=== PATIENT | male | born 1985 | race Caucasian/White ===

== ENCOUNTER 2016-11-08 10:29 | Emergency (ER) | payer SELFPAY ==
[2016-11-08] MEDS ORDERED: Ondansetron ODT 4 MG TAB ONE (10:37)
--- NOTE | 2016-11-08 11:03 | ERRECORD ---
[facility] EMERGENCY RECORD HPI NAUSEA/VOMITING/DIARRHEA (10:37 [facility]) CHIEF COMPLAINT: Patient presents for evaluation of nausea, Patient presents for evaluation of vomiting. HISTORIAN: History provided by patient, 31M presents complaining of nausea and vomiting that began last night after he consumed a large amount of alcohol. Reports cramping generalized abdominal pain. Denies change in urinary or bowel habits. Denies other complaints. LOCATION MALE: Symptoms are generalized. QUALITY: Pain is dull in nature, described as cramping. TIME COURSE: Gradual onset of symptoms, There has been no change in the patient's symptoms over time. ASSOCIATED WITH MALE: Associated with nausea, Associated with vomiting. EXACERBATED BY: Patient's condition exacerbated by food. ROS (10:38 [facility]) CONSTITUTIONAL: Negative constitutional review of systems, Historian denies chills, denies fever. EYES: Negative eye review of systems, Historian denies eye pain, denies eye discharge, denies vision changes. ENT: Negative ears, nose, throat review of systems, Historian denies rhinorrhea, denies sore throat. CARDIOVASCULAR: Negative cardiovascular review of systems, Historian denies chest pain, denies palpitations. RESPIRATORY: Negative respiratory review of systems, Historian denies cough, denies shortness of breath. GI: Historian reports nausea, reports vomiting. GENITOURINARY MALE: Negative genitourinary review of systems, Historian denies dysuria, denies hematuria. MUSCULOSKELETAL: Negative musculoskeletal review of systems, Historian denies back pain, denies fall, denies injury, denies neck pain. SKIN: Negative skin review of systems, Historian denies rash, denies skin changes. NEUROLOGIC: Negative neurologic review of systems, Historian denies headache. HEMO/LYMPHATIC: Normal hematologic/lymphatic system review, Historian denies abnormal blood clotting. PAST MEDICAL HISTORY (10:35 [facility]) MEDICAL HISTORY: Flu vaccine not up to date, Tetanus not up to date, No past medical history,. MALE SURGICAL HISTORY: Surgical history of craniotomy, Date of surgery 2010, Surgical history of orthopedic surgery, right femur, knee, Date of surgery 2010. SOCIAL HISTORY: Patient drinks every day, less than 5 drinks per day, Patient denies drug use, Patient currently uses tobacco, smokes cigarettes, daily, Patient &a-1R&a+25V*p+0X*r9334C*c202B*c15G*c2P*p-0X&a-25V&a+1R Name: Naveed Gomez : 1985 M31 MedRec: [id number] AcctNum: [id number] Prepared: Jia Nov 08, 2016 11:00 by Interface Page 1 of 3 pMD [facility] EMERGENCY RECORD smokes 1 pack per day. KNOWN ALLERGIES No Known Drug Allergies No Known Drug Allergy (Unconfirmed) CURRENT MEDICATIONS (10:33 [facility]) None VITAL SIGNS VITAL SIGNS: Pulse: 60, Resp: 18, Temp: 98.1 (Oral), Pain: 0, O2 sat: 98 on Room Air, Time: 11/08/2016 10:32. (10:32 KMOR) BP: 163/77, Time: 11/08/2016 10:34. (10:34 KM[facility]) PHYSICAL EXAM (10:38 [facility]) CONSTITUTIONAL: Vital signs reviewed, Patient afebrile, Pulse normal, Blood pressure normal, Respiratory rate normal, Patient appears non toxic, Patient appears pain free, Patient alert and oriented to person, place and time. HEAD: Head exam normal, Head exam included findings of head atraumatic, normocephalic. EYES: Eye exam normal, Eye exam included findings of eyelids normal to inspection, Pupils equally round and reactive to light, Extraocular muscles intact, no nystagmus. ENT: ENT exam normal, Ear exam normal, external ear normal, tympanic membranes normal, no bleeding, Pharynx exam normal, Uvula exam normal, Tonsil exam normal, Mouth exam normal, mucous membranes moist, teeth normal. NECK: Neck exam normal, Neck exam included findings of normal range of motion, Trachea midline, no meningeal signs, no cervical adenopathy, no tenderness. RESPIRATORY CHEST: Respiratory and chest exam normal, Respiratory exam included findings of no respiratory distress, Breath sounds clear. CARDIOVASCULAR: Cardiovascular assessment normal, Cardiovascular exam included findings of heart rate regular rate and rhythm, Heart sounds normal. ABDOMEN MALE: Abdominal exam included findings of abdomen nontender, Bowel sounds normal, no distension, no mass, no pulsatile masses, no peritoneal signs, no rigidity, no guarding, no rebound, Rovsing's sign absent. BACK: Back exam normal, Back exam included findings of normal inspection, range of motion normal, no tenderness. UPPER EXTREMITY: Upper extremity exam normal, Upper extremity exam included findings of inspection normal, Range of motion normal, Motor strength normal, Sensation intact, Radial pulse normal. LOWER EXTREMITY: Lower extremity exam normal, Lower extremity exam included findings of inspection normal, Range of motion normal, Motor strength normal, Sensation intact, Posterior tibial pulse normal, Pedal pulse normal. &a-1R&a+25V*p+0X*x2171F*c202B*c15G*c2P*p-0X&a-25V&a+1R Name: Naveed Gomez : 1985 M31 MedRec: [id number] AcctNum: [id number] Prepared: Jia Nov 08, 2016 11:00 by Interface Page 2 of 3 pMD [facility] EMERGENCY RECORD NEURO: Neuro exam normal, Neuro exam findings include patient oriented to person, place and time, Speech normal, Gait normal. SKIN: Skin exam normal, Skin exam included findings of skin warm, dry, and normal in color, no rash. PSYCHIATRIC: Psychiatric exam normal, Normal affect. MEDICATION ADMINISTRATION SUMMARY Drug Name: Zofran ODT, Dose Ordered: 4 mg, Route: Oral, Status: Given, Time: 10:38 11/08/2016, Detailed record available in Medication Service section. DOCTOR NOTES (10:39 JJA) TEXT: Patient presented with signs and symptoms consistent with alcohol induced gastritis and emesis. Vital signs and physical exam unremarkable, and my suspicion for more serious conditions like pancreatitis, obstruction, or cholecystitis are low. I do not believe he needs further workup or other investigation in the emergency department at this time and is appropriate for discharge home. PATIENT STATUS: Patient has improved since arrival to emergency department. PATIENT PLAN: The patient will be discharged, The patient will follow up with primary care physician. PROBLEM LIST No recorded problems DIAGNOSIS (10:50 [facility]) FINAL: PRIMARY: ALCOHOLIC GASTRITIS W/O BLEEDING. PRESCRIPTION (10:50 [facility]) Zofran ODT: TABLET, RAPID DISSOLVE : 4 mg : ORAL : Quantity: 4 Unit: mg Route: ORAL Schedule: every 8 hours PRN Dispense: 5 May substitute. Refills: No Refills . NOTES: Take as needed for nausea or vomiting. One refill authorized No refills. DISPOSITION (10:50 [facility]) PATIENT: Disposition Type: Discharge, Disposition: *Discharge Home. Franz: CHARI=MD Radha, Brain KMOR=MELLISSA Haque, Sindy &a-1R&a+25V*p+0X*k0407D*c202B*c15G*c2P*p-0X&a-25V&a+1R Name: Naveed Gomez : 1985 M31 MedRec: [id number] AcctNum: [id number] Prepared: Jia Nov 08, 2016 11:00 by Interface Page 3 of 3 pMD MTDD
--- NOTE | 2016-11-08 11:19 | PICIS ---
[facility] EMERGENCY RECORD TRIAGE (WedNov 08, 2016 10:33 KM[facility]) TRIAGE NOTES: Drinking last night, vomiting today. (WedNov 08, 2016 10:33 KMOR) PATIENT: NAME: Naveed Gomez, AGE: 31, GENDER: male, : [facility] 1985, TIME OF GREET: WedNov 08, 2016 10:30, PREFERRED LANGUAGE: Mongolian, ETHNICITY: Not or , ECODE BILLING MAP: [facility], SSN: [id number], Zip Code: [address], KG WEIGHT: 63.50, , , PERSON ID: [id number], PAYMENT: [employer] Self Pay, PCP: DO LEVI JOHN SCOTT. (WedNov 08, 2016 10:33 KMOR) PHONE: . (10:45) COMPLAINT: Vomiting Alone. (WedNov 08, 2016 10:33 KMOR) ADMISSION: URGENCY: 4 Non Urgent, ADMISSION SOURCE: Home, TRANSPORT: CAR, BED: ER -02. (WedNov 08, 2016 10:33 KMOR) ASSESSMENT: Assessment: A&OX4. RR EVEN AND UNLABORED., Symptoms began yesterday. (10:35 KMOR) PAIN: No complaint of pain. (10:35 KM[facility]) IMMUNIZATIONS: Flu vaccine not up to date, Tetanus not up to date. (10:35 KM[facility]) SIRS SCORING: Heart Rate 55-109 (0), Temp range 96.8-101.1 (0), respiratory rate 12-24 (0), Mental Status altered: no (0), Infection or Suspected Infection: No. (10:35 KM[facility]) TRIAGE SCREENING: Patient denies suicidal ideation, Patient denies presence of domestic violence. (10:35 KM[facility]) PROVIDERS: TRIAGE NURSE: iSndy Haque RN. (WedNov 08, 2016 10:33 KM[facility]) VITAL SIGNS: Pulse 60, Resp 18, Temp 98.1, (Oral), Pain 0, O2 Sat 98, on Room Air, Time 11/08/2016 10:32. (10:32 KMOR) BP 163/77, Time 11/08/2016 10:34. (10:34 KMOR) KNOWN ALLERGIES No Known Drug Allergies No Known Drug Allergy (Unconfirmed) CURRENT MEDICATIONS (10:33 KMOR) None VITAL SIGNS VITAL SIGNS: Pulse: 60, Resp: 18, Temp: 98.1 (Oral), Pain: 0, O2 sat: 98 on Room Air, Time: 11/08/2016 10:32. (10:32 KMOR) BP: 163/77, Time: 11/08/2016 10:34. (10:34 KMOR) NURSING ASSESSMENT: ABDOMEN (10:38 K[facility]) CONSTITUTIONAL: Patient arrives ambulatory, Gait steady, History obtained from patient, Patient appears, uncomfortable, Patient cooperative, Patient alert, Oriented to person, place and time, Skin warm, Skin dry, Skin normal in color, Mucous membranes pink, Mucous membranes, tacky, Patient is well-groomed, Patient complains of Vomiting, Reports drinking last night, vomiting started today. Reports headache. &a-1R&a+25V*p+0X*g3862O*c202B*c15G*c2P*p-0X&a-25V&a+1R Name: Naveed Gomez : 1985 M31 MedRec: [id number] AcctNum: [id number] Prepared: Jia Nov 08, 2016 11:13 by Interface Page 1 of 5 pMD [facility] EMERGENCY RECORD PAIN: Patient rates pain as 0 out of 10. ABDOMEN: Abdomen assessment findings include abdomen symmetrical, Abdomen soft, Bowel sound normal, Associated with nausea, Associated with vomiting, history of vomiting, having bilious emesis, no associated diarrhea, no associated weight change, Associated with appetite change, decrease. GENITOURINARY MALE: no associated urinary complaints. NOTES: Patient tolerated procedure well. NURSING PROCEDURE: DISCHARGE NOTE (11:03 KM[facility]) DISCHARGE: Patient discharged to home, ambulating without assistance, family driving, accompanied by //partner, Summary of Care printed/ provided, Transition record given to patient, Discharge instructions given to patient, Simple or moderate discharge teaching performed, by MELLISSA Callahan, Discharge instructions and follow up reviewed with patient. Pt ambulatory to discharge desk., Prescriptions given and instructions on side effects given, Name of prescription(s) given: Aide mendes person(s) verbalized understanding of discharge instructions and follow-up care. BELONGINGS: Belongings remain with patient, Valuables remain with patient. MEDICATION ADMINISTRATION SUMMARY Drug Name: Zofran ODT, Dose Ordered: 4 mg, Route: Oral, Status: Given, Time: 10:38 11/08/2016, Detailed record available in Medication Service section. MEDICATION SERVICE Zofran ODT: Order: Zofran ODT (ondansetron) - Dose: 4 mg : Oral Ordered by: Brain Garcia MD Entered by: MD Jia Caban Nov 08, 2016 10:36 Documented as given by: MELLISSA Courtney Nov 08, 2016 10:38 Patient, Medication, Dose, Route and Time verified prior to administration. Amount given: 4mg, Site: Medication administered S.L., Correct patient, time, route, dose and medication confirmed prior to administration, Patient advised of actions and side-effects prior to administration, Allergies confirmed and medications reviewed prior to administration, Patient in position of comfort, Side rails up, Cart in lowest position, Family at bedside. : Follow Up : Response assessment performed, No signs or symptoms of allergic reaction noted. (11:04 KM[facility]) HPI NAUSEA/VOMITING/DIARRHEA (10:37 [facility]) CHIEF COMPLAINT: Patient presents for evaluation of nausea, Patient presents for evaluation of vomiting. &a-1R&a+25V*p+0X*s4340Q*c202B*c15G*c2P*p-0X&a-25V&a+1R Name: Naveed Gomez : 1985 M31 MedRec: [id number] AcctNum: [id number] Prepared: Jia Nov 08, 2016 11:13 by Interface Page 2 of 5 pMD [facility] EMERGENCY RECORD HISTORIAN: History provided by patient, 31M presents complaining of nausea and vomiting that began last night after he consumed a large amount of alcohol. Reports cramping generalized abdominal pain. Denies change in urinary or bowel habits. Denies other complaints. LOCATION MALE: Symptoms are generalized. QUALITY: Pain is dull in nature, described as cramping. TIME COURSE: Gradual onset of symptoms, There has been no change in the patient's symptoms over time. ASSOCIATED WITH MALE: Associated with nausea, Associated with vomiting. EXACERBATED BY: Patient's condition exacerbated by food. ROS (10:38 [facility]) CONSTITUTIONAL: Negative constitutional review of systems, Historian denies chills, denies fever. EYES: Negative eye review of systems, Historian denies eye pain, denies eye discharge, denies vision changes. ENT: Negative ears, nose, throat review of systems, Historian denies rhinorrhea, denies sore throat. CARDIOVASCULAR: Negative cardiovascular review of systems, Historian denies chest pain, denies palpitations. RESPIRATORY: Negative respiratory review of systems, Historian denies cough, denies shortness of breath. GI: Historian reports nausea, reports vomiting. GENITOURINARY MALE: Negative genitourinary review of systems, Historian denies dysuria, denies hematuria. MUSCULOSKELETAL: Negative musculoskeletal review of systems, Historian denies back pain, denies fall, denies injury, denies neck pain. SKIN: Negative skin review of systems, Historian denies rash, denies skin changes. NEUROLOGIC: Negative neurologic review of systems, Historian denies headache. HEMO/LYMPHATIC: Normal hematologic/lymphatic system review, Historian denies abnormal blood clotting. PAST MEDICAL HISTORY (10:35 [facility]) MEDICAL HISTORY: Flu vaccine not up to date, Tetanus not up to date, No past medical history,. MALE SURGICAL HISTORY: Surgical history of craniotomy, Date of surgery 2010, Surgical history of orthopedic surgery, right femur, knee, Date of surgery 2010. SOCIAL HISTORY: Patient drinks every day, less than 5 drinks per day, Patient denies drug use, Patient currently uses tobacco, smokes cigarettes, daily, Patient smokes 1 pack per day. PHYSICAL EXAM (10:38 [facility]) &a-1R&a+25V*p+0X*r5010N*c202B*c15G*c2P*p-0X&a-25V&a+1R Name: Naveed Gomez Bella : 1985 M31 MedRec: [id number] AcctNum: [id number] Prepared: Jia Nov 08, 2016 11:13 by Interface Page 3 of 5 pMD [facility] EMERGENCY RECORD CONSTITUTIONAL: Vital signs reviewed, Patient afebrile, Pulse normal, Blood pressure normal, Respiratory rate normal, Patient appears non toxic, Patient appears pain free, Patient alert and oriented to person, place and time. HEAD: Head exam normal, Head exam included findings of head atraumatic, normocephalic. EYES: Eye exam normal, Eye exam included findings of eyelids normal to inspection, Pupils equally round and reactive to light, Extraocular muscles intact, no nystagmus. ENT: ENT exam normal, Ear exam normal, external ear normal, tympanic membranes normal, no bleeding, Pharynx exam normal, Uvula exam normal, Tonsil exam normal, Mouth exam normal, mucous membranes moist, teeth normal. NECK: Neck exam normal, Neck exam included findings of normal range of motion, Trachea midline, no meningeal signs, no cervical adenopathy, no tenderness. RESPIRATORY CHEST: Respiratory and chest exam normal, Respiratory exam included findings of no respiratory distress, Breath sounds clear. CARDIOVASCULAR: Cardiovascular assessment normal, Cardiovascular exam included findings of heart rate regular rate and rhythm, Heart sounds normal. ABDOMEN MALE: Abdominal exam included findings of abdomen nontender, Bowel sounds normal, no distension, no mass, no pulsatile masses, no peritoneal signs, no rigidity, no guarding, no rebound, Rovsing's sign absent. BACK: Back exam normal, Back exam included findings of normal inspection, range of motion normal, no tenderness. UPPER EXTREMITY: Upper extremity exam normal, Upper extremity exam included findings of inspection normal, Range of motion normal, Motor strength normal, Sensation intact, Radial pulse normal. LOWER EXTREMITY: Lower extremity exam normal, Lower extremity exam included findings of inspection normal, Range of motion normal, Motor strength normal, Sensation intact, Posterior tibial pulse normal, Pedal pulse normal. NEURO: Neuro exam normal, Neuro exam findings include patient oriented to person, place and time, Speech normal, Gait normal. SKIN: Skin exam normal, Skin exam included findings of skin warm, dry, and normal in color, no rash. PSYCHIATRIC: Psychiatric exam normal, Normal affect. EVENTS TRANSFER: Triage to Emergency Emergency Room -02. (Jia Nov 08, 2016 10:33 KMOR) Removed from Emergency Emergency Room -02. (11:04 KM[facility]) DOCTOR NOTES (10:39 [facility]) TEXT: Patient presented with signs and symptoms consistent with alcohol induced gastritis and emesis. Vital signs and physical exam unremarkable, and my suspicion for more serious conditions like &a-1R&a+25V*p+0X*w5632C*c202B*c15G*c2P*p-0X&a-25V&a+1R Name: Naveed Gomez : 1985 M31 MedRec: [id number] AcctNum: [id number] Prepared: Jia Nov 08, 2016 11:13 by Interface Page 4 of 5 pMD [facility] EMERGENCY RECORD pancreatitis, obstruction, or cholecystitis are low. I do not believe he needs further workup or other investigation in the emergency department at this time and is appropriate for discharge home. PATIENT STATUS: Patient has improved since arrival to emergency department. PATIENT PLAN: The patient will be discharged, The patient will follow up with primary care physician. PROBLEM LIST No recorded problems DIAGNOSIS (10:50 [facility]) FINAL: PRIMARY: ALCOHOLIC GASTRITIS W/O BLEEDING. DISPOSITION PATIENT: Disposition Type: Discharge, Disposition: *Discharge Home. (10:50 [facility]) Patient left the department. (11:04 KMOR) INSTRUCTION (10:52 [facility]) DISCHARGE: GASTRITIS (ADULT). FOLLOWUP: DO GURMEET, MARIA INES MONTANEZ, [facility], [address] [place] [address], . SPECIAL: Stokes foods, clear fluids. Avoid alcohol. Return if abdominal pain sharpens or worsens. PRESCRIPTION (10:50 [facility]) Zofran ODT: TABLET, RAPID DISSOLVE : 4 mg : ORAL : Quantity: 4 Unit: mg Route: ORAL Schedule: every 8 hours PRN Dispense: 5 May substitute. Refills: No Refills . NOTES: Take as needed for nausea or vomiting. One refill authorized No refills. IMAGING (11:03 K[facility]) *DISCHARGE INSTRUCTIONS RECEIPT: Image captured from scanner. *SUPPLY CHARGE SHEET: Image captured from scanner. ADMIN DIGITAL SIGNATURE: MD Garcia Jason. (10:52 [facility]) MELLISSA Haque, Sindy. (11:04 [facility]) Franz: CHARI=MD Garcia Jason KMOR=MELLISSA Haque, Sindy &a-1R&a+25V*p+0X*d0641N*c202B*c15G*c2P*p-0X&a-25V&a+1R Name: Naveed Gomez : 1985 M31 MedRec: [id number] AcctNum: [id number] Prepared: Jia Nov 08, 2016 11:13 by Interface Page 5 of 5 pMD MTDD
== END 2016-11-08 11:04 | disposition home or self-care (01) ==
LOC: BURERS 10:29
DX: K29.20 Alcoholic gastritis without bleeding (principal); F17.210 Nicotine dependence, cigarettes, uncomplicated
CPT/HCPCS: 99283; Q0162

== ENCOUNTER 2021-08-19 10:02 | Outpatient (CLI) | payer SELFPAY | END 2021-08-19 10:03 | disposition home or self-care (01) | LOC: BURRAD 10:02 | PROVIDERS: ATTEND Physician Assistant | DX: M25.512 Pain in left shoulder (principal) ==